=== PATIENT | female | born 1990 | race Caucasian/White ===

== ENCOUNTER 2024-03-17 13:23 | Outpatient (CLI) | payer SELFPAY ==
--- NOTE | ~2024-03-17 | US_ITS ---
EXAMINATION: US pelvic complete w TV DATE: 03/17/2024 14:06 INDICATION: Pelvic and perineal pain. TECHNIQUE: Multiple transabdominal and transvaginal sonographic images of the pelvis were obtained. COMPARISON: None. FINDINGS: TRANSABDOMINAL ULTRASOUND: The uterus measures 7.1 x 3.3 x 4.4 cm. There is no free fluid in the pelvis. TRANSVAGINAL ULTRASOUND: The endometrial complex measures 4 mm in thickness. There is a 10 x 8 mm cyst with low-level echoes i n the endometrial complex, which may be secondary to endometrial ablation. There is fluid in the endo metrial complex. The right ovary measures 1.6 x 1.7 x 21 cm. The left ovary measures 4.1 x 2.3 x 2.9 cm. There is normal vascular flow in the ovaries. IMPRESSION: 1. No specific etiology for the patient's symptoms. Reviewed, dictated and finalized at location A. [employer]IST
== END 2024-03-17 13:24 | disposition home or self-care (01) ==
LOC: MICIMG 13:25
PROVIDERS: PCP Nurse Practitioner Family; Visit Provider Nurse Practitioner Family
DX: R10.2 Pelvic and perineal pain (principal)
CPT/HCPCS: 76830; 76856

== ENCOUNTER 2024-03-24 22:28 | Emergency (ER) | payer OTHER, SELFPAY ==
--- NOTE | ~2024-03-24 | XR_ITS ---
EXAMINATION: XR abdomen/kub 1V DATE: 03/25/2024 02:57 INDICATION: Rectal foreign body. TECHNIQUE: A supine view of the abdomen on 2 radiographs was obtained. COMPARISON: CT abdomen and pelvis 03/25/2024 FINDINGS: There are no dilated loops of bowel. There is a small volume of stool in the colon. Tubal l igation clips are noted. There is a displaced tubal ligation clip in the midline anterior to the rect um. IMPRESSION: 1. Displaced tubal ligation clip in the midline anterior to the rectum. Reviewed, dictated and finalized at location A. TEGIC CONSULTANT
--- NOTE | ~2024-03-24 | CT_ITS ---
EXAMINATION: CT abdomen pelvis wo con DATE: 03/25/2024 04:05 INDICATION: Rectal foreign body. TECHNIQUE: Computed tomography (CT) of the abdomen and pelvis was performed without intravenous contr ast. Automated exposure control and iterative reconstruction technique were employed. The dose-length product was 1280.62 mGy-cm. COMPARISON: None. FINDINGS: The visualized portions of the lung bases demonstrate mild atelectasis. No pleural effusion . The heart size is normal. No pericardial effusion. The liver, gallbladder, spleen, pancreas, adrena l glands, and left kidney are normal. There is a 1 mm stone in right kidney. There are no dilated loo ps of bowel. The appendix is normal. There are no pathologically enlarged lymph nodes. There is no fr ee intraperitoneal fluid. There is a right-sided tubal ligation clip in expected position. There is a displaced left-sided tubal ligation clip anterior to the rectum. There is mild thoracic and lumbar s pondylosis. IMPRESSION: 1. Displaced tubal ligation clip anterior to the rectum. Reviewed, dictated and finalized at location A. MANAGER
--- OUTSIDE RECORDS SUMMARY | 2024-03-24 22:30 | XMS_ITS | Referral Summary ---
Author Organization [facility] Address [address] [place] [address] Care Team Providers Care Stained Glass Joiner Name Role Phone Unavailable Primary Care Provider Unavailabl e Source Comments [facility],non-owned Affiliates and Associated Physician Practices is amultiple site organization consisting of ambulatory clinics and hospital sitesin [place], [place], [place] and [place]. This disclosure is being madepursuant to the Care Everywhere program and may not contain all information available regarding this patient. Last updated 17.[employer] [facility] Allergies No known active allergies Medications * Be aware that medications may not be up to date on this document. Alwaysverify current medications with the patient. Medication Sig Dispensed Refills Start Date End Date Status ferrous sulfate 325 (65 FE) MG tablet Take 325 mg by mouth 3 times daily with meals. 04/11/2010 Active docusate sodium (COLACE) 100 MG capsule Take 100 mg by mouth 2 times daily. 04/11/2010 Active Vit-Fe Fumarate-FA ( VITAMIN) 28-0.8 MG tablet Take 1 Tab by mouth daily. Active acetaminophen-codeine (TYLENOL #3) 300-30 MG tablet Take 1-2 Tabs by mouth every 6 hours as needed for Pain (pain). 30 Tab 0 04/12/2010 Active Active Problems Problem Noted Date Diagnosed Date Supervision of normal first 04/11/2010 Overview (04/11/2010): Blood type: HIV GC/CT: pending H/H/Plt: GCT: GBS: pending Hydronephrosis of right kidney 04/11/2010 Overview (04/11/2010): OSH report in chart, dilated to 0.71cm, no stone seen. History of migraine during 04/11/2010 Overview (04/11/2010): Reports having daily ORTEGA during , treated with tylenol only Other nonspecific abnormal finding 04/11/2010 Overview (04/11/2010): Pt reports abnormal pap prior to with plan to have f/u pap . Denies any biopsy or colpo. Nephrolithiasis 04/11/2010 Overview (04/11/2010): Possible nephrolithiasis of right kidney, positive hydronephrosis, pain in right back and lower abdomen, no stones seen on US at [facility], no stones recovered with urine straining. Immunizations Name Administration Dates Next Due TDAP (7yrs+) 01/01/2020 Social History Tobacco Use Types Packs/Day Years Used Date Smoking Tobacco: Every Day Smokeless Tobacco: Never Alcohol Use Standard Drinks/Week Comments No 0 (1 standard drink = 0.6 oz pur e alcohol) Sex and Gender Information Value Date Recorded Sex Assigned at Not on file Gender Identity Not on file Sexual Orientation Not on file Last Filed Vital Signs Vital Sign Reading Time Taken Comments Blood Pressure 142/99 01/01/2020 5:14 PM SIDE SAWYER Pulse 105 01/01/2020 5:14 PM SIDE SAWYER Temperature 36.4 C (97.6 F) 01/01/2020 5:14 PM SIDE SAWYER Respiratory Rate 16 01/01/2020 5:14 PM SIDE SAWYER Oxygen Saturation 97% 01/01/2020 5:14 PM SIDE SAWYER Inhaled Oxygen Concentration - - Weight 90.7 kg (200 lb) 01/01/2020 5:14 PM SIDE SAWYER Height 160 cm (5' 3 ) 01/01/2020 5:14 PM SIDE SAWYER Body Mass Index 35.43 01/01/2020 5:14 PM SIDE SAWYER Plan of Treatment Not on file Advance Directives * Full Code (Latest Code Status on File) Date Activated Date Inactivated Comments 04/11/2010 1:59 PM 04/13/2010 4:38 AM
--- OUTSIDE RECORDS SUMMARY | 2024-03-24 22:30 | XMS_ITS | Patient Health Summary ---
Author Organization [facility] Address [address] [place] [address] Care Team Providers Care Fire Fighter Name Role Phone Unavailable Primary Care Provider Unavailabl e Note from [facility],non-owned Affiliates and Associated Physician Practices is amultiple site organization consisting of ambulatory clinics and hospital sitesin [place], [place], [place] and [place]. This disclosure is being madepursuant to the Care Everywhere program and may not contain all information available regarding this patient. Last updated 17.[facility] Allergies No known active allergies Medications * Be aware that medications may not be up to date on this document. Alwaysverify current medications with the patient. * ferrous sulfate 325 (65 FE) MG tablet(Started 04/11/2010) Take 325 mg by mouth 3 times daily with meals. * docusate sodium (COLACE) 100 MG capsule(Started 04/11/2010) Take 100 mg by mouth 2 times daily. * Vit-Fe Fumarate-FA ( VITAMIN) 28-0.8 MG tablet Take 1 Tab by mouth daily. * acetaminophen-codeine (TYLENOL #3) 300-30 MG tablet(Started 04/12/2010) Take 1-2 Tabs by mouth every 6 hours as needed for Pain (pain). Active Problems Problem Noted Date Diagnosed Date Supervision of normal first 04/11/2010 Hydronephrosis of right kidney 04/11/2010 History of migraine during 04/11/2010 Other nonspecific abnormal finding 04/11/2010 Nephrolithiasis 04/11/2010 Immunizations * TDAP (7yrs+)(Given 01/01/2020) Social History Tobacco Use Types Packs/Day Years [...] Comments Blood Pressure 142/99 01/01/2020 5:14 PM VALVE FITTER Pulse 105 01/01/2020 5:14 PM VALVE FITTER Temperature 36.4 C (97.6 F) 01/01/2020 5:14 PM VALVE FITTER Respiratory Rate 16 01/01/2020 5:14 PM VALVE FITTER Oxygen Saturation 97% 01/01/2020 5:14 PM VALVE FITTER Inhaled Oxygen Concentration - - Weight 90.7 kg (200 lb) 01/01/2020 5:14 PM VALVE FITTER Height 160 cm (5' 3 ) 01/01/2020 5:14 PM VALVE FITTER Body Mass Index 35.43 01/01/2020 5:14 PM VALVE FITTER Procedures * IMAGING/RADIOLOGY/XRAY RESULTS ORDER(Performed 04/15/2010) * CBC W AUTO DIFFERENTIAL(Performed 04/12/2010) * BLOOD TYPE VERIFICATION(Performed 04/11/2010) * URINALYSIS REFLEX MICROSCOPIC REFLEX CULTURE(Performed 04/11/2010) * TYPE + SCREEN PANEL(Performed 04/11/2010) * LIPASE BLOOD(Performed 04/11/2010) * AMYLASE BLOOD(Performed 04/11/2010) * DRUG SCREEN URINE TRIAGE PANEL(Performed 04/11/2010) * COMPREHENSIVE METABOLIC PANEL(Performed 04/11/2010) * CBC W AUTO DIFFERENTIAL(Performed 04/11/2010) * CULTURE STREP B(Performed 04/11/2010) * CHLAMYDIA + GC AMPLIFIED PROBE(Performed 04/11/2010) Results * IMAGING/RADIOLOGY/XRAY RESULTS ORDER (04/15/2010 8:41 AM VALVE FITTER) Anatomical Region Laterality Modality Other Narrative Procedure Note Document, Scanned - 04/13/2010 11:22 PM VALVE FITTER Scanned Document IMAGING * (ABNORMAL) CBC W AUTO DIFFERENTIAL (04/12/2010 4:40 AM VALVE FITTER) Only the most recent of2 resultswithin the time period is included. WBC 10.4(H) 4.0 - 10.0 K/CUMM [facility] RBC 3.88 3.80 - 5.80 M/CUMM [facility] Hemoglobin 11.5(L) 12.0 - 16.0 gm/dl [facility] Hematocrit 34.0(L) 37.0 - 47.0 % [facility] MCV 87.6 80.0 - 100.0 fl [facility] MCH 29.6 26.0 - 34.0 pg [facility] MCHC 33.8 31.0 - 37.0 gm/dl [facility] Platelet Count 192 150 - 400 K/CUMM [facility] RDW 15.2(H) 11.5 - 14.5 % [facility] Granulocytes % 61.2 50 - 70 % [facility] Lymphocytes % 22.6(DE) 20 - 40 % [facility] Monocytes % 14.4(H) 0 - 12 % [facility] Eosinophils % 1.2(DE) 0 - 5 % [facility] Basophils % 0.2(DE) 0 - 2 % [facility] Granulocytes Absolute 6.34 2.00 - 7.00 x1000/cmm [facility] Lymphocytes Absolute 2.34 0.80 - 4.00 x1000/cmm [facility] Monocytes Absolute 1.49(H) 0.00 - 1.20 x1000/cmm [facility] Eosinophils Absolute 0.12 0.00 - 0.50 x1000/cmm [facility] Basophils Absolute 0.02 0.00 - 0.20 x1000/cmm [facility] BLOOD SPECIMEN / Unknown 04/12/2010 4:40 AM VALVE FITTER 04/12/2010 4:47 AM VALVE FITTER Maicol Uriarte MD LAB - HEMATOLOGY ORD ERABLES Performing Organization Address City/State/[facility] Co de Phone Number [facility] [address] [place] [address] * BLOOD TYPE VERIFICATION (04/11/2010 4:00 PM VALVE FITTER) ABO Rh O Pos SEE BELOW [facility] Comment: Weak D testing is not performed at [facility] BLOOD SPECIMEN / Unknown 04/11/2010 4:00 PM VALVE FITTER 04/11/2010 4:18 PM VALVE FITTER Sheree Edgar MD LAB - BLOOD BANK ORDERABLES Performing Organization Address City/State/[facility] Co de Phone Number [facility] [address] [place] [address] * (ABNORMAL) URINALYSIS ROUTINE W/REFLEX TO CULTURE (04/11/2010 2:44 PM VALVE FITTER) Source Catheter [facility] Color UA Pale Yellow [facility] Character UA Clear [facility] Glucose UA NEGATIVE NEGATIVE mg/dl [facility] Bilirubin UA NEGATIVE NEGATIVE [facility] Ketone UA 15(H) NEGATIVE mg/dl [facility] Specific [place] UA 1.010 1.003 - 1.030 [facility] Blood UA TRACE-INTACT (H) NEGATIVE [facility] pH UA 7.0 5.0 - 9.0 [facility] Protein UA NEGATIVE NEGATIVE-TR MEL mg/dl [facility] Urobilinogen UA 0.2 0.2 - 1.0 Raphael Units/dl [facility] Nitrite UA NEGATIVE NEGATIVE [facility] Leukocyte UA NEGATIVE NEGATIVE [facility] WBC UA 1-2 0 - 2 HPF [facility] RBC UA 1-3 None Seen HPF [facility] Epithelial Cell UA Squamous 4-5 None Seen HPF [facility] Bacteria UA trace None Seen [facility] Urine Culture Culture is not indicated per protocol. [facility] URINE SPECIMEN COLLECTION, CATHETERIZED / Unknown 04/11/2010 2:44 PM VALVE FITTER 04/11/2010 3:10 PM VALVE FITTER Chun Uriarte MD LAB - URINALYSIS ORD ERABLES [facility] [address] [place] [address] * CHLAMYDIA + GC DNA PROBE AMPLIFIED (04/11/2010 2:15 PM VALVE FITTER) [facility] Chlamydia trachomatis Amplified Probe NEGATIVE NEGATIVE [facility] GC Amplified Probe NEGATIVE NEGATIVE [facility] Comment Amplified Probe [facility] Comment: Results based on detection/no detection of ribosomal RNA by amplified method. PART OF UTERINE CERVIX / Unknown 04/11/2010 2:15 PM VALVE FITTER 04/11/2010 2:53 PM VALVE FITTER Maicol Uriarte MD LAB - MICROBIOLOGY O RDERABLES [facility] [address] [place] [id number] * CULTURE STREP B (04/11/2010 2:15 PM VALVE FITTER) Report [facility] Comment: Final - CULTURE No Group B Beta Strep isolated MISCELLANEOUS SAMPLES / Unknown 04/11/2010 2:15 PM VALVE FITTER 04/11/2010 2:54 PM VALVE FITTER Maicol Uriarte MD LAB - MICROBIOLOGY O RDERABLES Performing Organization Address City/[facility] Co de Phone Number [facility] [address] [place] [address] * TYPE + SCREEN PANEL (04/11/2010 2:15 PM VALVE FITTER) Pathologist [facility] ABO Rh O Pos SEE BELOW [facility] Comment: Weak D testing is not performed at [facility] Antibody Screen Neg [facility] Previous History Check Done No historical blood type. Blood type confirmation needed prior to transfusion. [facility] BLOOD SPECIMEN / Unknown 04/11/2010 2:15 PM VALVE FITTER 04/11/2010 3:11 PM VALVE FITTER Maicol Uriarte MD LAB - BLOOD BANK ORD ERABLES Performing Organization Address [facility] de Phone Number [facility] [address] [place] [address] * (ABNORMAL) COMPREHENSIVE METABOLIC PANEL (04/11/2010 2:15 PM VALVE FITTER) Pathologist [facility] Sodium 135(L) 137 - 145 mmol/L [facility] Potassium 3.8 3.6 - 5.0 mmol/L [facility] Chloride 105 98 - 107 mmol/L [facility] BUN 10 7 - 17 mg/dl [facility] Creatinine 0.69 0.52 - 1.04 mg/dl [facility] Glucose 66 65 - 105 mg/dl [facility] Calcium 8.5 8.4 - 10.2 mg/dl [facility] Alkaline Phosphatase 48 38 - 126 U/L [facility] AST 17 8 - 39 U/L [facility] Bilirubin Total 0.1(L) 0.2 - 1.3 mg/dl [facility] Protein Total 6.0(L) 6.3 - 8.2 gm/dl [facility] Albumin 3.0(L) 3.9 - 5.0 gm/dl [facility] CO2 28 22 - 30 mmol/L [facility] ALT 15 9 - 52 U/L [facility] eGFR by MDRD 134 Not applicable <18 yrs old mL/min/1.73m2 [facility] Comment eGFR [facility] Comment: The eGFR does not apply to patients who are younger than 18 or older than 70. BLOOD SPECIMEN / Unknown 04/11/2010 2:15 PM VALVE FITTER 04/11/2010 3:11 PM VALVE FITTER Maicol Uirarte MD LAB - CHEMISTRY ORDE DINH [facility] [address] [place] [id number] * LIPASE BLOOD (04/11/2010 2:15 PM VALVE FITTER) Lipase 41 23 - 300 U/L [facility] BLOOD SPECIMEN / Unknown 04/11/2010 2:15 PM VALVE FITTER 04/11/2010 3:11 PM VALVE FITTER Maicol Uriarte MD LAB - CHEMISTRY ORDE DINH Performing Organization Address City/[facility] Co de Phone Number [facility] [address] [place] [address] * DRUG SCREEN TRIAGE PANEL (04/11/2010 2:15 PM VALVE FITTER) Phencyclidine Screen Urine Negative Negative ng/ml [facility] Benzodiazepines Screen Urine Negative Negative ng/ml [facility] Cocaine Screen Urine Negative Negative ng/ml [facility] Amphetamines Screen Urine Negative Negative ng/ml [facility] Cannabinoids Screen Urine Negative Negative ng/ml [facility] Opiate Screen Urine Negative Negative ng/ml [facility] Barbiturates Screen Urine Negative Negative ng/ml [facility] URINE / Unknown 04/11/2010 2 :15 PM VALVE FITTER 04/11/2010 3:11 PM VALVE FITTER Maicol Uriarte MD LAB - URINE CHEMISTR Y ORDERABLES Performing Organization Address City/[facility]/ZIP Co de Phone Number [facility] [address] [place] [address] * AMYLASE BLOOD (04/11/2010 2:15 PM VALVE FITTER) Amylase 52 30 - 110 U/L [facility] BLOOD SPECIMEN / Unknown 04/11/2010 2:15 PM VALVE FITTER 04/11/2010 3:11 PM VALVE FITTER Maicol Uriarte MD LAB - CHEMISTRY ABAD TAO [facility] [address] [place] [address]
--- OUTSIDE RECORDS SUMMARY | 2024-03-24 22:30 | XMS_ITS | Clinical Summary ---
Author Organization [facility] Address [address] [place] [address] Phone Care Team Providers Care Research Staff Member Name Role Phone Provider, None Primary Care Provider Unavailabl e Allergies No known active allergies Medications busPIRone HCl (BUSPAR) 30 MG Tablet Take by mouth 2 times daily. Active lithium 300 MG Capsule Take 300 mg by mouth 2 times daily (with meals). Active DULoxetine (CYMBALTA) [address] Particles Take 60 mg by mouth 2 times daily. Active naproxen (NAPROSYN) 500 MG Tablet Take 1 Tab by mouth 2 times daily as needed for Mild or more severe pain. 20 Tab 12/15/2017 Active ondansetron (ZOFRAN-ODT) 4 MG TABLET DISPERSIBLEIndi cations:Nausea and Vomiting Take 1 Tablet by mouth every 8 hours as needed for Nausea - 1st line. Indications: Nausea and Vomiting 10 Tablet 02/19/2024 Active Encounters Date Type Department Care Team Description 02/25/2024 Transcribe Orders [facility] Central Scheduling [address] [place] [phone] Aide Dickson APRN, CNP Pelvic and perineal pain (Primary Dx) 02/19/2024 11:53 AM RENTAL CLERK - 02/19/2024 2:29 PM RENTAL CLERK [facility] [address] [place] [id number] Blanca Corbin APRN, KETTLE ROOM HELPER Suprapubic abdominal pain Discharge Disposition: Discharged to home or Selfcare 02/19/2024 Travel from Last 3 Months Social History Tobacco Use Types Packs/Day Years Used Date Smoking Tobacco: Never Smokeless Tobacco: Never Alcohol Use Standard Drinks/Week Comments Yes 0 (1 standard drink = 0.6 oz pur e alcohol) socially Comments No Sex and Gender Information Value Date Recorded Sex Assigned at Not on file Legal Sex Female 7:38 PM CDT Gender Identity Not on file Sexual Orientation Not on file Last Filed Vital Signs Vital Sign Reading Time Taken Comments Blood Pressure 133/68 02/19/2024 2:00 PM RENTAL CLERK Pulse 91 02/19/2024 2:15 PM RENTAL CLERK Temperature 36.9 C (98.5 F) 02/19/2024 12:00 PM RENTAL CLERK Respiratory Rate 16 02/19/2024 12:00 PM RENTAL CLERK Oxygen Saturation 98% 02/19/2024 2:15 PM RENTAL CLERK Inhaled Oxygen Concentration - - Weight 90.7 kg (200 lb) 02/19/2024 12:00 PM RENTAL CLERK Height 160 cm (5' 3 ) 02/19/2024 12:00 PM RENTAL CLERK Body Mass Index 35.43 02/19/2024 12:00 PM RENTAL CLERK Plan of Treatment Health Maintenance Due Date Last Done Comments Hepatitis C Virus (HCV) Screening 1991 Pap Smear 12/27/2012 Cervical Cancer Screening (CCS) 12/27/2021 HPV/Cotest 12/27/2021 Influenza Immunization (#1) 2023 SARS-COV-2 Immunization (2023- season) 2023 Respiratory Syncytial Virus (RSV) Immunization (Adult) (1 - 1-dose 75+ series) 12/27/2066 Hepatitis B Immunization Completed 997, 08/06/1993, 07/05/1993 DTaP/Tdap/Td Immunization Discontinued 2019, 06/22/1996, 07/05/1993, Additional history exists TdaP Immunization Completed 01/01/2020 Meningococcal Immunization (ACWY) Aged Out No longer eligible based on patient's age to complete this topic Pneumococcal Immunization Combined Aged Out No longer eligible based on patient's age to complete this topic Rotavirus Immunization Aged Out No lo nger eligible based on patient's age to complete this topic Procedures Procedure Name Priority Date/Time Associated Diagnosis Comments CT RENAL STONE STUDY (ABDOMEN AND PELVIS W/O CONTRAST) Stat with Interpretation 02/19/2024 1:13 PM RENTAL CLERK POCT URINE HCG () STAT 02/19/2024 12:34 PM RENTAL CLERK URINALYSIS REFLEX IF INDICATED BY ABNORMAL RESULTS STAT 02/19/2024 12:30 PM RENTAL CLERK GOLD TOP TUBE STAT 02/19/2024 12:10 PM RENTAL CLERK BLUE TOP TUBE STAT 02/19/2024 12:10 PM RENTAL CLERK CBC WITH AUTO DIFFERENTIAL STAT 02/19/2024 12:10 PM RENTAL CLERK EXTRA TUBES STAT 02/19/2024 12:10 PM RENTAL CLERK LIPASE STAT 02/19/2024 12:10 PM RENTAL CLERK CMP (COMPREHENSIVE METABOLIC PANEL) STAT 02/19/2024 12:10 PM RENTAL CLERK COMPLETE BLOOD COUNT (CBC) WITH DIFF STAT 02/19/2024 12:10 PM RENTAL CLERK from Last 3 Months Results * CT RENAL STONE STUDY (ABDOMEN AND PELVIS W/O CONTRAST) (02/19/2024 1:13 PM RENTAL CLERK) Anatomical Region Laterality Modality Abdomen N/A Computed Tomogra phy 02/19/2024 2:01 PM RENTAL CLERK Impressions 02/19/2024 2:04 PM RENTAL CLERK IMPRESSION: No evidence of an acute abnormality of the abdomen and pelvis. No evidence of urolithiasis or obstructive uropathy. Submucosal fat deposition in the colon which is nonspecific but can be seen with chronic inflammatory bowel disease. Narrative 02/19/2024 2:04 PM RENTAL CLERK EXAM DESCRIPTION: CT RENAL STONE STUDY (ABDOMEN AND PELVIS W/O CONTRAST) REASON FOR STUDY: lower abdominal pain, radiates into bilateral flank with intermittent, N/V, and ORTEGA for 3 days. Pt has a history of an ablation and tubal ligation over ten years ago. TECHNIQUE: CT scan of the abdomen and pelvis performed without intravenous and without oral contrast using helical scanning technique. Reconstructed coronal and sagittal MPR images reviewed. All images stored on PACS. Automated exposure control was used as a dose optimization technique for this examination. COMPARISON: None. FINDINGS: The sensitivity for detection of visceral lesions is diminished without the use of intravenous contrast. LOWER CHEST: Lung bases are predominantly clear. There is no pleural effusion. LIVER: The liver size and contour normal. No focal hepatic lesion. GALLBLADDER: The gallbladder is contracted. No calcified gallstones. BILE DUCTS: No biliary ductal dilation. SPLEEN: Spleen size normal. No focal splenic lesion. PANCREAS: No pancreatic mass or inflammatory change. ADRENALS: Normal KIDNEYS/URINARY TRACT: No right renal calculus. No left renal calculus. No ureteral calculus. No hydronephrosis or hydroureter. The urinary bladder is unremarkable. GI: No bowel obstruction. There is submucosal fat deposition in the colon. The terminal ileum is normal. The appendix is normal. The stomach and duodenum is normal. PERITONEUM: No ascites or free air. No mesenteric mass or lymphadenopathy. RETROPERITONEUM: No retroperitoneal mass or lymphadenopathy. REPRODUCTIVE: The uterus is noted. There are clips in the pelvis likely from tubal ligation. VASCULATURE: Abdominal aorta nonaneurysmal. MUSCULOSKELETAL: Bone windows demonstrate no acute or aggressive osseous abnormality. OTHER: No other abnormality. THIS IS AN ELECTRONICALLY VERIFIED FINAL REPORT 02/19/2024 2:01 PM - Electronically signed by Wagner Jiang M.D. CH: RAUL Report ID: [id number] Reading Location: [place] [address] Procedure Note Wagner Jiang Jr., MD - 02/19/2024 EXAM DESCRIPTION: CT RENAL STONE STUDY (ABDOMEN AND PELVIS W/O CONTRAST) REASON FOR STUDY: lower abdominal pain, radiates into bilateral flank with intermittent, N/V, and ORTEGA for 3 days. Pt has a history of an ablation and tubal ligation over ten years ago. TECHNIQUE: CT scan of the abdomen and pelvis performed without intravenous and without oral contrast using helical scanning technique. Reconstructed coronal and sagittal MPR images reviewed. All images stored on PACS. Automated exposure control was used as a dose optimization technique for this examination. COMPARISON: None. FINDINGS: The sensitivity for detection of visceral lesions is diminished without the use of intravenous contrast. LOWER CHEST: Lung bases are predominantly clear. There is no pleural effusion. LIVER: The liver size and contour normal. No focal hepatic lesion. GALLBLADDER: The gallbladder is contracted. No calcified gallstones. BILE DUCTS: No biliary ductal dilation. SPLEEN: Spleen size normal. No focal splenic lesion. PANCREAS: No pancreatic mass or inflammatory change. ADRENALS: Normal KIDNEYS/URINARY TRACT: No right renal calculus. No left renal calculus. No ureteral calculus. No hydronephrosis or hydroureter. The urinary bladder is unremarkable. GI: No bowel obstruction. There is submucosal fat deposition in the colon. The terminal ileum is normal. The appendix is normal. The stomach and duodenum is normal. PERITONEUM: No ascites or free air. No mesenteric mass or lymphadenopathy. RETROPERITONEUM: No retroperitoneal mass or lymphadenopathy. REPRODUCTIVE: The uterus is noted. There are clips in the pelvis likely from tubal ligation. VASCULATURE: Abdominal aorta nonaneurysmal. MUSCULOSKELETAL: Bone windows demonstrate no acute or aggressive osseous abnormality. OTHER: No other abnormality. THIS IS AN ELECTRONICALLY VERIFIED FINAL REPORT 02/19/2024 2:01 PM - Electronically signed by Wagner Jiang M.D. CH: RAUL Report ID: [id number] Reading Location: [id number] IMPRESSION: No evidence of an acute abnormality of the abdomen and pelvis. No evidence of urolithiasis or obstructive uropathy. Submucosal fat deposition in the colon which is nonspecific but can be seen with chronic inflammatory bowel disease. Blanca Corbin APRN, CNP IMG CT ORDERABLES Fin al Result * POCT Urine HCG () (02/19/2024 12:34 PM RENTAL CLERK) Pathologist [facility] POC URINE Negative POC URINE CONTROL Contracting Analyst Pass Urine 02/19/2024 12:3 4 PM RENTAL CLERK Blanca Corbin APRN, CNP POINT OF CARE TESTING (MANUAL) Final Result * (ABNORMAL) URINALYSIS REFLEX IF INDICATED BY ABNORMAL RESULTS (02/19/2024 12:30 PM RENTAL CLERK) SPECIFIC GRAVITY 1.020 1.003 - 1.030 02/19/2024 1:13 PM [facility] URINE PH 6.0 5.0 - 9.0 02/19/2024 1:13 PM [facility] WBC ESTERASE 25 /ul(A) Negative 02/19/2024 1:13 PM [facility] NITRITE Negative Negative 02/19/2024 1:13 PM [facility] PROTEIN, RANDOM URINE 30 mg/dL(A) Negative 02/19/2024 1:13 PM [facility] URINE GLUCOSE, QUAL Negative Negative 02/19/2024 1:13 PM [facility] URINE KETONES Negative Negative 02/19/2024 1:13 PM [facility] UROBILINOGEN Normal Normal mg/dL 02/19/2024 1:13 PM [facility] URINE BLOOD Negative Negative omaira/ul 02/19/2024 1:13 PM [facility] URINALYSIS COLOR Yellow 02/18/19 25 1:13 PM [facility] URINALYSIS CLARITY Slightly Cloudy 02/19/2024 1:13 PM [facility] WBC (Urine) 0-5 Negative, 0-5 /hpf 02/19/2024 1:13 PM [facility] URINE RBC'S 0-2 Negative, 0-2 /hpf 02/19/2024 1:13 PM [facility] EPITHELIAL CELLS Large amount squamous /lpf 02/19/2024 1:13 PM [facility] BACTERIA, URINE Few(A) Negative /hpf 02/19/2024 1:13 PM [facility] Urine URINE SPECIMEN COLLECTION, CLEAN CATCH / Unknown Non-Phlebotomy Collection / Unknown 02/19/2024 12:30 PM RENTAL CLERK 02/19/2024 12:41 PM RENTAL CLERK Narrative [facility] - 02/19/2024 1:13 PM RENTAL CLERK Amorphous sediment present us Blanca Corbin FOLDER TIER, KETTLE ROOM HELPER URINE ORDERABLES Liz l Result Performing Organization Address City/[facility]/ZIP Co de Phone Number [facility] [address] [place] [address] * Gold Top Tube (02/19/2024 12:10 PM RENTAL CLERK) Blood No Phlebotomy Charged / Unknown 02/19/2024 12:10 PM RENTAL CLERK 02/19/2024 12:19 PM RENTAL CLERK us Blanca Corbin FOLDER TIER, KETTLE ROOM HELPER CHEMISTRY ORDERABLES Final Result Performing Organization Address [facility]/ZIP Co de Phone Number [facility] [address] [place] [address] * Blue Top Tube (02/19/2024 12:10 PM RENTAL CLERK) Blood No Phlebotomy Charged / Unknown 02/19/2024 12:10 PM RENTAL CLERK 02/19/2024 12:19 PM RENTAL CLERK us Blanca Corbin FOLDER TIER, KETTLE ROOM HELPER HEMATOLOGY ORDERABLES Final Result Performing Organization Address [facility] Co de Phone Number [facility] [address] [place] [address] * (ABNORMAL) CBC with Auto Differential (02/19/2024 12:10 PM RENTAL CLERK) WBC 11.00 4.00 - 12.00 10(3)/mcL 02/19/2024 12:22 PM RENTAL CLERK [facility] RBC 5.07 3.80 - 5.30 10(6)/mcL 02/19/2024 12:22 PM RENTAL CLERK [facility] HEMOGLOBIN (HGB) 15.8 12.0 - 15.8 g/dL 02/19/2024 12:22 PM RENTAL CLERK [facility] HEMATOCRIT (HCT) 46.8 36.0 - 47.0 % 02/19/2024 12:22 PM RENTAL CLERK [facility] MCV 92.3 82.0 - 96.0 fL 02/19/2024 12:22 PM [facility] MCH 31.2 26.0 - 34.0 pg 02/19/2024 12:22 PM [facility] MCHC 33.8 31.0 - 36.0 g/dL 02/19/2024 12:22 PM [facility] PLATELET COUNT 354 140 - 440 10(3)/[facility] 02/19/2024 12:22 PM [facility] RDW 12.2 11.8 - 15.5 % 02/19/2024 12:22 PM [facility] MPV 9.5(L) 9.7 - 12.4 fL 02/19/2024 12:22 PM [facility] NEUTROPHILS 55.9 47.0 - 73.0 % 02/19/2024 12:22 PM [facility] LYMPHOCYTES 31.2 18.0 - 42.0 % 02/19/2024 12:22 PM [facility] MONOCYTES 10.3 4.0 - 12.0 % 02/19/2024 12:22 PM [facility] EOSINOPHILS 2.0 0.0 - 5.0 % 02/19/2024 12:22 PM [facility] BASOPHILS 0.6 0.0 - 1.0 % 02/19/2024 12:22 PM [facility] ABSOLUTE NEUTROPHILS 6.15 1.60 - 7.70 10(3)/mcL 02/19/2024 12:22 PM [facility] ABSOLUTE LYMPHOCYTES 3.43(H) 1.30 - 3.20 10(3)/mcL 02/19/2024 12:22 PM [facility] ABSOLUTE MONOCYTES 1.13(H) 0.20 - 1.00 10(3)/mcL 02/19/2024 12:22 PM [facility] ABSOLUTE EOSINOPHIL 0.22 0.00 - 0.40 10(3)/mcL 02/19/2024 12:22 PM [facility] ABSOLUTE BASOPHILS 0.07 0.00 - 0.10 10(3)/mcL 02/19/2024 12:22 PM RENTAL CLERK [facility] NRBC PER 100 WBC 0 02/18/19 12:22 PM RENTAL CLERK [facility] Blood Venipuncture / Unknown 02/19/2024 12:10 PM RENTAL CLERK 02/19/2024 12:18 PM RENTAL CLERK us Blanca Corbin APRN, KETTLE ROOM HELPER HEMATOLOGY ORDERABLES Final Result Performing Organization Address City/[facility]/ZIP Co de Phone Number [facility] [address] [place] [address] * Lipase [id number] (02/19/2024 12:10 PM RENTAL CLERK) LIPASE 16 8 - 78 U/L 02/19/2024 12:40 PM RENTAL CLERK [facility] Blood Venipuncture / Unknown 02/19/2024 12:10 PM RENTAL CLERK 02/19/2024 12:18 PM RENTAL CLERK us Blanca Corbin APRN, KETTLE ROOM HELPER CHEMISTRY ORDERABLES Final Result Performing Organization Address City/[facility]/ZIP Co de Phone Number [facility] [address] [place] [address] * (ABNORMAL) Comprehensive Metabolic Panel (Cmp) [id number] (02/19/2024 12:10 PM RENTAL CLERK) SODIUM 139 136 - 145 mmol/L 02/19/2024 12:40 PM RENTAL CLERK [facility] POTASSIUM 4.0 3.5 - 5.1 mmol/L 02/19/2024 12:40 PM RENTAL CLERK [facility] CHLORIDE 104 98 - 107 mmol/L 02/19/2024 12:40 PM RENTAL CLERK [facility] CO2, VENOUS 27 22 - 30 mmol/L 02/19/2024 12:40 PM RENTAL CLERK [facility] ANION GAP 12.0 <18.0 mmol/L 02/19/2024 12:40 PM [facility] GLUCOSE 103(H) 70 - 99 mg/dL 02/19/2024 12:40 PM [facility] BUN 14 5 - 18 mg/dL 02/19/2024 12:40 PM [facility] CREATININE, BLOOD 0.85 0.60 - 1.00 mg/dL 02/19/2024 12:40 PM [facility] BUN/CREATININE RATIO 16 12 - 20 ratio 02/19/2024 12:40 PM [facility] TOTAL PROTEIN 7.8 6.3 - 8.2 g/dL 02/19/2024 12:40 PM [facility] ALBUMIN 4.3 3.5 - 5.0 g/dL 02/19/2024 12:40 PM [facility] A/G RATIO 1.2 1.0 - 2.2 02/19/2024 12:40 PM [facility] CALCIUM 9.8 8.7 - 10.5 mg/dL 02/19/2024 12:40 PM [facility] T BILI 0.3 0.2 - 1.2 mg/dL 02/19/2024 12:40 PM [facility] SGOT (AST) 20 5 - 34 U/L 02/19/2024 12:40 PM [facility] SGPT (ALT) 28 0 - 55 U/L 02/19/2024 12:40 PM [facility] ALKALINE PHOSPHATASE 62 40 - 150 U/L 02/19/2024 12:40 PM [facility] GFR, ESTIMATED >60 >=60 02/19/2024 12:40 PM [facility] Comment: Creatinine Clearance is the preferred criteria for selecting drug dose adjustments in renally impaired patients. The GFR is provided as additional pertinent clinical information. GFR is reported in mL/min/1.73 sq m. Calculation based on the Chronic Kidney Disease Epidemiology Collaboration (CKD- EPI) equation refit without adjustment for race. GFR, EST. >60 >=60 025 12:40 PM RENTAL CLERK [facility] GFR, EST. NONAFRICAN >60 >=60 02/19/2024 12:40 PM RENTAL CLERK [facility] Blood Venipuncture / Unknown 02/19/2024 12:10 PM RENTAL CLERK 02/19/2024 12:18 PM RENTAL CLERK Blanca Corbin FOLDER TIER, KETTLE ROOM HELPER CHEMISTRY ORDERABLES Final Result [facility] [address] [place] [address] from Last 3 Months Insurance [place] [employer] Member Subscriber Plan / Payer (Ef fective 2020-Present) Name:Miladys De León Relation to Subscriber:Self Name:Miladys De León Payer ID:[id number] Group ID:NONE Type:Not on file Address: [address] [place] [phone] Care Teams Research Staff Member Relationship Specialty Start Date End Date Provider, None [place] PCP - General 02/19/24
--- OUTSIDE RECORDS SUMMARY | 2024-03-24 22:30 | XMS_ITS | Clinical Summary ---
Author Organization [facility] Address [address] [place] [address] Care Team Providers Care Guest Services Ambassador Name Role Phone Unavailable Primary Care Provider Unavailabl e Source Comments [facility],non-owned Affiliates and Associated Physician Practices is amultiple site organization consisting of ambulatory clinics and hospital sitesin [place], [place], [place] and [place]. This disclosure is being madepursuant to the Care Everywhere program and may not contain all information available regarding this patient. Last updated 17.[facility] Allergies No known active allergies Medications * [...] abdomen, no stones seen on US at [facility], no stones recovered with urine straining. Immunizations Name Administration Dates Next Due TDAP (7yrs+) 01/01/2020 Family History Medical History Relation Name Comments Heart Failure Maternal Grandfather Cancer Maternal Grandmother Stroke Paternal Grandfather Diabetes Paternal Grandmother Relation Name Status Comments Father Alive Maternal Grandfather Maternal Grandmother Mother Alive Paternal Grandfather Paternal Grandmother Alive Social History Tobacco Use Types Packs/Day Years [...] Comments Blood Pressure 142/99 01/01/2020 5:14 PM AGRICULTURE DEPARTMENT CHAIR Pulse 105 01/01/2020 5:14 PM AGRICULTURE DEPARTMENT CHAIR Temperature 36.4 C (97.6 F) 01/01/2020 5:14 PM AGRICULTURE DEPARTMENT CHAIR Respiratory Rate 16 01/01/2020 5:14 PM AGRICULTURE DEPARTMENT CHAIR Oxygen Saturation 97% 01/01/2020 5:14 PM AGRICULTURE DEPARTMENT CHAIR Inhaled Oxygen Concentration - - Weight 90.7 kg (200 lb) 01/01/2020 5:14 PM AGRICULTURE DEPARTMENT CHAIR Height 160 cm (5' 3 ) 01/01/2020 5:14 PM AGRICULTURE DEPARTMENT CHAIR Body Mass Index 35.43 01/01/2020 5:14 PM AGRICULTURE DEPARTMENT CHAIR Plan of Treatment Health Maintenance Due Date Last Done Comments PAP SMEAR 1991 HIV SCREENING 12/27/2006 HEPATITIS C SCREENING 12/23/2009 HEPATITIS B VACCINE (1 of 3 - 19+ 3-dose series) 12/27/2010 PNEUMOCOCCAL VACCINE (1 of 2 - PCV) 12/27/2010 COVID-19 VACCINE (1 - 2023-2 5 season) 2023 INFLUENZA VACCINE (#1) 2023 DEPRESSION SCREENING 02/10/2024 DTAP/TDAP/TD VACCINES (2 - T d or Tdap) 12/31/2029 01/01/2020 ZOSTER VACCINE (1 of 2) 12/27/2041 HIB VACCINE Aged Out No longer eligi ble based on patient's age to complete this topic HPV VACCINE Aged Out No longer eligi ble based on patient's age to complete this topic MENINGOCOCCAL (Group B) VACCINE Aged Out No longer eligible based on patient's age to complete this topic MENINGOCOCCAL VACCINE Aged Out No vicente edmund eligible based on patient's age to complete this topic Advance Directives * Full Code (Latest Code Status on File) Date Activated Date Inactivated Comments 04/11/2010 1:59 PM 04/13/2010 4:38 AM
[2024-03-24 22:34] VITALS: BP 141/85; PULSE 73; RESP 17; TEMP 36.4; O2SAT 96
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
--- OUTSIDE RECORDS SUMMARY | 2024-03-25 02:31 | XMS_ITS | Referral Summary ---
Author Organization [facility] Address [address] [place] [address] Care Team Providers Care Back Tender Name Role Phone Unavailable Primary Care Provider Unavailabl e Source Comments [facility],non-owned Affiliates and Associated Physician Practices is amultiple site organization consisting of ambulatory clinics and hospital sitesin [place], [place], [place] and [place]. This disclosure is being madepursuant to the Care Everywhere program and may not contain all information available regarding this patient. Last updated [email or web address] Allergies No known active allergies Medications * [...] abdomen, no stones seen on US at [facility], no stones recovered with urine straining. [...] Comments Blood Pressure 142/99 01/01/2020 5:14 PM ASSISTANT CORPORATE CONTROLLER Pulse 105 01/01/2020 5:14 PM ASSISTANT CORPORATE CONTROLLER Temperature 36.4 C (97.6 F) 01/01/2020 5:14 PM ASSISTANT CORPORATE CONTROLLER Respiratory Rate 16 01/01/2020 5:14 PM ASSISTANT CORPORATE CONTROLLER Oxygen Saturation 97% 01/01/2020 5:14 PM ASSISTANT CORPORATE CONTROLLER Inhaled Oxygen Concentration - - Weight 90.7 kg (200 lb) 01/01/2020 5:14 PM ASSISTANT CORPORATE CONTROLLER Height 160 cm (5' 3 ) 01/01/2020 5:14 PM ASSISTANT CORPORATE CONTROLLER Body Mass Index 35.43 01/01/2020 5:14 PM ASSISTANT CORPORATE CONTROLLER Plan of Treatment Not on file Advance Directives * Full Code (Latest Code Status on File) Date Activated Date Inactivated Comments 04/11/2010 1:59 PM 04/13/2010 4:38 AM
--- OUTSIDE RECORDS SUMMARY | 2024-03-25 02:31 | XMS_ITS | Patient Health Summary ---
Author Organization [facility] Address [address] [place] [address] Care Team Providers Care Window Shade Installer Name Role Phone Unavailable Primary Care Provider Unavailabl e Note from [facility],non-owned Affiliates and Associated Physician Practices is amultiple site organization consisting of ambulatory clinics and hospital sitesin [place], [place], [place] and [place]. This disclosure is being madepursuant to the Care Everywhere program and may not contain all information available regarding this patient. Last updated 17.[facility] Allergies No known active allergies Medications * [...] Comments Blood Pressure 142/99 01/01/2020 5:14 PM COMMAND AND CONTROL OFFICER Pulse 105 01/01/2020 5:14 PM COMMAND AND CONTROL OFFICER Temperature 36.4 C (97.6 F) 01/01/2020 5:14 PM COMMAND AND CONTROL OFFICER Respiratory Rate 16 01/01/2020 5:14 PM COMMAND AND CONTROL OFFICER Oxygen Saturation 97% 01/01/2020 5:14 PM COMMAND AND CONTROL OFFICER Inhaled Oxygen Concentration - - Weight 90.7 kg (200 lb) 01/01/2020 5:14 PM COMMAND AND CONTROL OFFICER Height 160 cm (5' 3 ) 01/01/2020 5:14 PM COMMAND AND CONTROL OFFICER Body Mass Index 35.43 01/01/2020 5:14 PM COMMAND AND CONTROL OFFICER Procedures * IMAGING/RADIOLOGY/XRAY RESULTS ORDER(Performed 04/15/2010) * [...] * IMAGING/RADIOLOGY/XRAY RESULTS ORDER (04/15/2010 8:41 AM COMMAND AND CONTROL OFFICER) Anatomical Region Laterality Modality Other Narrative Procedure Note Document, Scanned - 04/13/2010 11:22 PM COMMAND AND CONTROL OFFICER Scanned Document IMAGING * (ABNORMAL) CBC W AUTO DIFFERENTIAL (04/12/2010 4:40 AM COMMAND AND CONTROL OFFICER) Only the most recent of2 resultswithin the time period is included. WBC 10.4(H) 4.0 - 10.0 K/CUMM [facility] RBC 3.88 3.80 - 5.80 M/CUMM [facility] Hemoglobin 11.5(L) 12.0 - 16.0 gm/dl [facility] Hematocrit 34.0(L) 37.0 - 47.0 % [facility] MCV 87.6 80.0 - 100.0 fl [facility] MCH 29.6 26.0 - 34.0 pg [facility] MCHC 33.8 31.0 - 37.0 gm/dl [facility] Platelet Count 192 150 - 400 K/CUM[facility] RDW 15.2(H) 11.5 - 14.5 % [facility] Granulocytes % 61.2 50 - 70 % [facility] Lymphocytes % 22.6(DE) 20 - 40 % [facility] Monocytes % 14.4(H) 0 - 12 % [facility] Eosinophils % 1.2(DE) 0 - 5 % [facility] Basophils % 0.2(DE) 0 - 2 % [facility] Granulocytes Absolute 6.34 2.00 - 7.00 x1000/cmm [facility] Lymphocytes Absolute 2.34 0.80 - 4.00 x1000/cmm [facility] Monocytes Absolute 1.49(H) 0.00 - 1.20 x1000/cmm [facility] Eosinophils Absolute 0.12 0.00 - 0.50 x1000/cmm [facility] Basophils Absolute 0.02 0.00 - 0.20 x1000/cmm [facility] BLOOD SPECIMEN / Unknown 04/12/2010 4:40 AM COMMAND AND CONTROL OFFICER 04/12/2010 4:47 AM COMMAND AND CONTROL OFFICER Maicol Uriarte MD LAB - HEMATOLOGY ORD ERABLES Performing Organization Address City/State/[facility] Co de Phone Number [facility] [address] [place] [address] * BLOOD TYPE VERIFICATION (04/11/2010 4:00 PM COMMAND AND CONTROL OFFICER) ABO Rh O Pos SEE BELOW [facility] Comment: Weak D testing is not performed at [facility] BLOOD SPECIMEN / Unknown 04/11/2010 4:00 PM COMMAND AND CONTROL OFFICER 04/11/2010 4:18 PM COMMAND AND CONTROL OFFICER Sheree Edgar MD LAB - BLOOD BANK ORDERABLES Performing Organization Address City/State/[facility] Co de Phone Number [facility] [address] [place] [address] * (ABNORMAL) URINALYSIS ROUTINE W/REFLEX TO CULTURE (04/11/2010 2:44 PM COMMAND AND CONTROL OFFICER) Source Catheter [facility] Color UA Pale Yellow [facility] Character UA Clear [facility] Glucose UA NEGATIVE NEGATIVE mg/dl [facility] Bilirubin UA NEGATIVE NEGATIVE [facility] Ketone UA 15(H) NEGATIVE mg/dl [facility] Specific Douglas UA 1.010 1.003 - 1.030 [facility] Blood UA TRACE-INTACT (H) NEGATIVE [facility] pH UA 7.0 5.0 - 9.0 [facility] Protein UA NEGATIVE NEGATIVE-TR MEL mg/dl [facility] Urobilinogen UA 0.2 0.2 - 1.0 Raphael Units/dl [facility] Nitrite UA NEGATIVE NEGATIVE [facility] Leukocyte UA NEGATIVE NEGATIVE [facility] WBC UA 1-2 0 - 2 HPF [facility] RBC UA 1-3 None Seen HPF [facility] Epithelial Cell UA Squamous 4-5 None Seen HPF [facility] Bacteria UA trace None Seen [facility] Urine Culture Culture is not indicated per protocol. [facility] URINE SPECIMEN COLLECTION, CATHETERIZED / Unknown 04/11/2010 2:44 PM COMMAND AND CONTROL OFFICER 04/11/2010 3:10 PM COMMAND AND CONTROL OFFICER Chun Uriarte MD LAB - URINALYSIS ORD ERABLES [facility] [address] [place] [address] * CHLAMYDIA + GC DNA PROBE AMPLIFIED (04/11/2010 2:15 PM COMMAND AND CONTROL OFFICER) [facility] Chlamydia trachomatis Amplified Probe NEGATIVE NEGATIVE [facility] GC Amplified Probe NEGATIVE NEGATIVE [facility] Comment Amplified Probe [facility] Comment: Results based on detection/no detection of ribosomal RNA by amplified method. PART OF UTERINE CERVIX / Unknown 04/11/2010 2:15 PM COMMAND AND CONTROL OFFICER 04/11/2010 2:53 PM COMMAND AND CONTROL OFFICER Maicol Uriarte MD LAB - MICROBIOLOGY O RDERABLES [facility] [address] [place] [address] * CULTURE STREP B (04/11/2010 2:15 PM COMMAND AND CONTROL OFFICER) Report [facility] Comment: Final - CULTURE No Group B Beta Strep isolated MISCELLANEOUS SAMPLES / Unknown 04/11/2010 2:15 PM COMMAND AND CONTROL OFFICER 04/11/2010 2:54 PM COMMAND AND CONTROL OFFICER Maicol Uriarte MD LAB - MICROBIOLOGY O RDERABLES Performing Organization Address City/[facility] Co de Phone Number [facility] [address] [place] [address] * TYPE + SCREEN PANEL (04/11/2010 2:15 PM COMMAND AND CONTROL OFFICER) Pathologist [facility] ABO Rh O Pos SEE BELOW [facility] Comment: Weak D testing is not performed at [facility] Antibody Screen Neg [facility] Previous History Check Done No historical blood type. Blood type confirmation needed prior to transfusion. [facility] BLOOD SPECIMEN / Unknown 04/11/2010 2:15 PM COMMAND AND CONTROL OFFICER 04/11/2010 3:11 PM COMMAND AND CONTROL OFFICER Maicol Uriarte MD LAB - BLOOD BANK ORD ERABLES Performing Organization Address [facility] de Phone Number [facility] [address] [place] [address] * (ABNORMAL) COMPREHENSIVE METABOLIC PANEL (04/11/2010 2:15 PM COMMAND AND CONTROL OFFICER) Pathologist [facility] Sodium 135(L) 137 - 145 mmol/L [facility] Potassium 3.8 3.6 - 5.0 mmol/L [facility] Chloride 105 98 - 107 mmol/L [facility] BUN 10 7 - 17 mg/dl [facility] Creatinine 0.69 0.52 - 1.04 mg/dl [facility] Glucose 66 65 - 105 mg/dl [facility] Calcium 8.5 8.4 - 10.2 mg/dl [facility] Alkaline Phosphatase 48 38 - 126 U/L [facility] AST 17 8 - 39 U/L [facility] Bilirubin Total 0.1(L) 0.2 - 1.3 mg/dl [facility] Protein Total 6.0(L) 6.3 - 8.2 gm/dl [facility] Albumin 3.0(L) 3.9 - 5.0 gm/dl [facility] CO2 28 22 - 30 mmol/L [facility] ALT 15 9 - 52 U/L [facility] eGFR by MDRD 134 Not applicable <18 yrs old mL/min/1.73m2 [facility] Comment eGFR [facility] Comment: The eGFR does not apply to patients who are younger than 18 or older than 70. BLOOD SPECIMEN / Unknown 04/11/2010 2:15 PM COMMAND AND CONTROL OFFICER 04/11/2010 3:11 PM COMMAND AND CONTROL OFFICER Maicol Uriarte MD LAB - CHEMISTRY ORDE DINH [facility] [address] [place] [address] * LIPASE BLOOD (04/11/2010 2:15 PM COMMAND AND CONTROL OFFICER) Lipase 41 23 - 300 U/L [facility] BLOOD SPECIMEN / Unknown 04/11/2010 2:15 PM COMMAND AND CONTROL OFFICER 04/11/2010 3:11 PM COMMAND AND CONTROL OFFICER Maicol Uriarte MD LAB - CHEMISTRY ORDE DINH Performing Organization Address City/[facility] Co de Phone Number [facility] [address] [place] [address] * DRUG SCREEN TRIAGE PANEL (04/11/2010 2:15 PM COMMAND AND CONTROL OFFICER) Phencyclidine Screen Urine Negative Negative ng/ml [facility] Benzodiazepines Screen Urine Negative Negative ng/ml [facility] Cocaine Screen Urine Negative Negative ng/ml [facility] Amphetamines Screen Urine Negative Negative ng/ml [facility] Cannabinoids Screen Urine Negative Negative ng/ml [facility] Opiate Screen Urine Negative Negative ng/ml [facility] Barbiturates Screen Urine Negative Negative ng/ml [facility] URINE / Unknown 04/11/2010 2 :15 PM COMMAND AND CONTROL OFFICER 04/11/2010 3:11 PM COMMAND AND CONTROL OFFICER Maicol Uriarte MD LAB - URINE CHEMISTR Y ORDERABLES Performing Organization Address City/[facility]/ZIP Co de Phone Number [facility] [address] [place] [address] * AMYLASE BLOOD (04/11/2010 2:15 PM COMMAND AND CONTROL OFFICER) Amylase 52 30 - 110 U/L [facility] BLOOD SPECIMEN / Unknown 04/11/2010 2:15 PM COMMAND AND CONTROL OFFICER 04/11/2010 3:11 PM COMMAND AND CONTROL OFFICER Maicol Uriarte MD LAB - CHEMISTRY ABAD TAO [facility] [address] [place] [address]
--- OUTSIDE RECORDS SUMMARY | 2024-03-25 02:31 | XMS_ITS | Clinical Summary ---
Author Organization [facility] Address [address] [place] [address] [place] [address] Care Team Providers Care Devil Dog Name Role Phone Unavailable Primary Care Provider Unavailabl e Source Comments [facility],non-owned Affiliates and Associated Physician Practices is amultiple site organization consisting of ambulatory clinics and hospital sitesin [place], [place], [place] and [place]. This disclosure is being madepursuant to the Care Everywhere program and may not contain all information available regarding this patient. Last updated 17.[employer] Allergies No known active allergies Medications * [...] abdomen, no stones seen on US at [facility], no stones recovered with urine straining. [...] Comments Blood Pressure 142/99 01/01/2020 5:14 PM GOVERNMENT MINISTER Pulse 105 01/01/2020 5:14 PM GOVERNMENT MINISTER Temperature 36.4 C (97.6 F) 01/01/2020 5:14 PM GOVERNMENT MINISTER Respiratory Rate 16 01/01/2020 5:14 PM GOVERNMENT MINISTER Oxygen Saturation 97% 01/01/2020 5:14 PM GOVERNMENT MINISTER Inhaled Oxygen Concentration - - Weight 90.7 kg (200 lb) 01/01/2020 5:14 PM GOVERNMENT MINISTER Height 160 cm (5' 3 ) 01/01/2020 5:14 PM GOVERNMENT MINISTER Body Mass Index 35.43 01/01/2020 5:14 PM GOVERNMENT MINISTER Plan of Treatment Health Maintenance Due Date [...]
--- OUTSIDE RECORDS SUMMARY | 2024-03-25 02:31 | XMS_ITS | Clinical Summary ---
Author Organization [facility] Address [address] [place] [address] Phone Care Team Providers Care Pet Store Merchandiser Name Role Phone Provider, None Primary Care [...] Department Care Team Description 02/25/2024 Transcribe Orders [facility] Central Scheduling [address] [place] [id number] Aide Dickson APRN, CNP Pelvic and perineal pain (Primary Dx) 02/19/2024 11:53 AM EQUINE MANAGER - 02/19/2024 2:29 PM EQUINE MANAGER [facility] [address] [place] [id number] Blanca Corbin APRN, DIGITAL PHOTOGRAPHER Suprapubic abdominal pain Discharge Disposition: Discharged to [...] Comments Blood Pressure 133/68 02/19/2024 2:00 PM EQUINE MANAGER Pulse 91 02/19/2024 2:15 PM EQUINE MANAGER Temperature 36.9 C (98.5 F) 02/19/2024 12:00 PM EQUINE MANAGER Respiratory Rate 16 02/19/2024 12:00 PM EQUINE MANAGER Oxygen Saturation 98% 02/19/2024 2:15 PM EQUINE MANAGER Inhaled Oxygen Concentration - - Weight 90.7 kg (200 lb) 02/19/2024 12:00 PM EQUINE MANAGER Height 160 cm (5' 3 ) 02/19/2024 12:00 PM EQUINE MANAGER Body Mass Index 35.43 02/19/2024 12:00 PM EQUINE MANAGER Plan of Treatment Health Maintenance Due Date [...] CONTRAST) Stat with Interpretation 02/19/2024 1:13 PM EQUINE MANAGER POCT URINE HCG () STAT 02/19/2024 12:34 PM EQUINE MANAGER URINALYSIS REFLEX IF INDICATED BY ABNORMAL RESULTS STAT 02/19/2024 12:30 PM EQUINE MANAGER GOLD TOP TUBE STAT 02/19/2024 12:10 PM EQUINE MANAGER BLUE TOP TUBE STAT 02/19/2024 12:10 PM EQUINE MANAGER CBC WITH AUTO DIFFERENTIAL STAT 02/19/2024 12:10 PM EQUINE MANAGER EXTRA TUBES STAT 02/19/2024 12:10 PM EQUINE MANAGER LIPASE STAT 02/19/2024 12:10 PM EQUINE MANAGER CMP (COMPREHENSIVE METABOLIC PANEL) STAT 02/19/2024 12:10 PM EQUINE MANAGER COMPLETE BLOOD COUNT (CBC) WITH DIFF STAT 02/19/2024 12:10 PM EQUINE MANAGER from Last 3 Months Results * CT RENAL STONE STUDY (ABDOMEN AND PELVIS W/O CONTRAST) (02/19/2024 1:13 PM EQUINE MANAGER) Anatomical Region Laterality Modality Abdomen N/A Computed Tomogra phy 02/19/2024 2:01 PM EQUINE MANAGER Impressions 02/19/2024 2:04 PM EQUINE MANAGER IMPRESSION: No evidence of an acute abnormality of the abdomen and pelvis. No evidence of urolithiasis or obstructive uropathy. Submucosal fat deposition in the colon which is nonspecific but can be seen with chronic inflammatory bowel disease. Narrative 02/19/2024 2:04 PM EQUINE MANAGER EXAM DESCRIPTION: CT RENAL STONE STUDY (ABDOMEN [...] Wagner Jiang M.D. CH: RAUL Report ID: [id number] Reading Location: [place] [address] Procedure Note Wagner Jiang Jr., MD - [...] Wagner Jiang M.D. CH: RAUL Report ID: [id number] Reading Location: [id number] IMPRESSION: No evidence of an acute abnormality of the abdomen and pelvis. No evidence of urolithiasis or obstructive uropathy. Submucosal fat deposition in the colon which is nonspecific but can be seen with chronic inflammatory bowel disease. Blanca Corbin APRN, CNP IMG CT ORDERABLES Fin al Result * POCT Urine HCG () (02/19/2024 12:34 PM EQUINE MANAGER) Pathologist [facility] POC URINE Negative POC URINE CONTROL Industrial Registered Nurse Pass Urine 02/19/2024 12:3 4 PM EQUINE MANAGER Blanca Corbin APRN, CNP POINT OF CARE TESTING (MANUAL) Final Result * (ABNORMAL) URINALYSIS REFLEX IF INDICATED BY ABNORMAL RESULTS (02/19/2024 12:30 PM EQUINE MANAGER) SPECIFIC GRAVITY 1.020 1.003 - 1.030 02/19/2024 1:13 PM [facility] URINE PH 6.0 5.0 - 9.0 02/19/2024 1:13 PM [facility] WBC ESTERASE 25 /ul(A) Negative 02/19/2024 1:13 PM [facility] NITRITE Negative Negative 02/19/2024 1:13 PM [facility] PROTEIN, RANDOM URINE 30 mg/dL(A) Negative 02/19/2024 1:13 PM [facility] URINE GLUCOSE, QUAL Negative Negative 02/19/2024 1:13 PM [facility] URINE KETONES Negative Negative 02/19/2024 1:13 PM [facility] UROBILINOGEN Normal Normal mg/dL 02/19/2024 1:13 PM [facility] URINE BLOOD Negative Negative omaira/ul 02/19/2024 1:13 PM [facility] URINALYSIS COLOR Yellow 02/18/19 25 1:13 PM [facility] URINALYSIS CLARITY Slightly Cloudy 02/19/2024 1:13 PM [facility] WBC (Urine) 0-5 Negative, 0-5 /hpf 02/19/2024 1:13 PM [facility] URINE RBC'S 0-2 Negative, 0-2 /hpf 02/19/2024 1:13 PM [facility] EPITHELIAL CELLS Large amount squamous /lpf 02/19/2024 1:13 PM [facility] BACTERIA, URINE Few(A) Negative /hpf 02/19/2024 1:13 PM [facility] Urine URINE SPECIMEN COLLECTION, CLEAN CATCH / Unknown Non-Phlebotomy Collection / Unknown 02/19/2024 12:30 PM EQUINE MANAGER 02/19/2024 12:41 PM EQUINE MANAGER Narrative [facility] - 02/19/2024 1:13 PM EQUINE MANAGER Amorphous sediment present us Blanca Corbin BACKEND TESTER, DIGITAL PHOTOGRAPHER URINE ORDERABLES Liz l Result Performing Organization Address City/[facility]/ZIP Co de Phone Number [facility] [address] [place] [address] * Gold Top Tube (02/19/2024 12:10 PM EQUINE MANAGER) Blood No Phlebotomy Charged / Unknown 02/19/2024 12:10 PM EQUINE MANAGER 02/19/2024 12:19 PM EQUINE MANAGER us Blanca Corbin BACKEND TESTER, DIGITAL PHOTOGRAPHER CHEMISTRY ORDERABLES Final Result Performing Organization Address [facility]/ZIP Co de Phone Number [facility] [address] [place] [address] * Blue Top Tube (02/19/2024 12:10 PM EQUINE MANAGER) Blood No Phlebotomy Charged / Unknown 02/19/2024 12:10 PM EQUINE MANAGER 02/19/2024 12:19 PM EQUINE MANAGER us Blanca Corbin BACKEND TESTER, DIGITAL PHOTOGRAPHER HEMATOLOGY ORDERABLES Final Result Performing Organization Address [facility] Co de Phone Number [facility] [address] [place] [address] * (ABNORMAL) CBC with Auto Differential (02/19/2024 12:10 PM EQUINE MANAGER) WBC 11.00 4.00 - 12.00 10(3)/mcL 02/19/2024 12:22 PM EQUINE MANAGER [facility] RBC 5.07 3.80 - 5.30 10(6)/mcL 02/19/2024 12:22 PM EQUINE MANAGER [facility] HEMOGLOBIN (HGB) 15.8 12.0 - 15.8 g/dL 02/19/2024 12:22 PM EQUINE MANAGER [facility] HEMATOCRIT (HCT) 46.8 36.0 - 47.0 % 02/19/2024 12:22 PM EQUINE MANAGER [facility] MCV 92.3 82.0 - 96.0 fL 02/19/2024 12:22 PM [facility] MCH 31.2 26.0 - 34.0 pg 02/19/2024 12:22 PM [facility] MCHC 33.8 31.0 - 36.0 g/dL 02/19/2024 12:22 PM [facility] PLATELET COUNT 354 140 - 440 10(3)/[facility] 02/19/2024 12:22 PM [facility] RDW 12.2 11.8 - 15.5 % 02/19/2024 12:22 PM [facility] MPV 9.5(L) 9.7 - 12.4 fL 02/19/2024 12:22 PM [facility] NEUTROPHILS 55.9 47.0 - 73.0 % 02/19/2024 12:22 PM [facility] LYMPHOCYTES 31.2 18.0 - 42.0 % 02/19/2024 12:22 PM [facility] MONOCYTES 10.3 4.0 - 12.0 % 02/19/2024 12:22 PM [facility] EOSINOPHILS 2.0 0.0 - 5.0 % 02/19/2024 12:22 PM [facility] BASOPHILS 0.6 0.0 - 1.0 % 02/19/2024 12:22 PM [facility] ABSOLUTE NEUTROPHILS 6.15 1.60 - 7.70 10(3)/mcL 02/19/2024 12:22 PM [facility] ABSOLUTE LYMPHOCYTES 3.43(H) 1.30 - 3.20 10(3)/mcL 02/19/2024 12:22 PM [facility] ABSOLUTE MONOCYTES 1.13(H) 0.20 - 1.00 10(3)/mcL 02/19/2024 12:22 PM [facility] ABSOLUTE EOSINOPHIL 0.22 0.00 - 0.40 10(3)/mcL 02/19/2024 12:22 PM [facility] ABSOLUTE BASOPHILS 0.07 0.00 - 0.10 10(3)/mcL 02/19/2024 12:22 PM EQUINE MANAGER [facility] NRBC PER 100 WBC 0 02/18/19 12:22 PM EQUINE MANAGER [facility] Blood Venipuncture / Unknown 02/19/2024 12:10 PM EQUINE MANAGER 02/19/2024 12:18 PM EQUINE MANAGER us Blanca Corbin APRN, DIGITAL PHOTOGRAPHER HEMATOLOGY ORDERABLES Final Result Performing Organization Address City/[facility]/ZIP Co de Phone Number [facility] [address] [place] [address] * Lipase [id number] (02/19/2024 12:10 PM EQUINE MANAGER) LIPASE 16 8 - 78 U/L 02/19/2024 12:40 PM EQUINE MANAGER [facility] Blood Venipuncture / Unknown 02/19/2024 12:10 PM EQUINE MANAGER 02/19/2024 12:18 PM EQUINE MANAGER us Blanca Corbin APRN, DIGITAL PHOTOGRAPHER CHEMISTRY ORDERABLES Final Result Performing Organization Address City/[facility]/ZIP Co de Phone Number [facility] [address] [place] [address] * (ABNORMAL) Comprehensive Metabolic Panel (Cmp) [id number] (02/19/2024 12:10 PM EQUINE MANAGER) SODIUM 139 136 - 145 mmol/L 02/19/2024 12:40 PM EQUINE MANAGER [facility] POTASSIUM 4.0 3.5 - 5.1 mmol/L 02/19/2024 12:40 PM EQUINE MANAGER [facility] CHLORIDE 104 98 - 107 mmol/L 02/19/2024 12:40 PM EQUINE MANAGER [facility] CO2, VENOUS 27 22 - 30 mmol/L 02/19/2024 12:40 PM EQUINE MANAGER [facility] ANION GAP 12.0 <18.0 mmol/L 02/19/2024 12:40 PM [facility] GLUCOSE 103(H) 70 - 99 mg/dL 02/19/2024 12:40 PM [facility] BUN 14 5 - 18 mg/dL 02/19/2024 12:40 PM [facility] CREATININE, BLOOD 0.85 0.60 - 1.00 mg/dL 02/19/2024 12:40 PM [facility] BUN/CREATININE RATIO 16 12 - 20 ratio 02/19/2024 12:40 PM [facility] TOTAL PROTEIN 7.8 6.3 - 8.2 g/dL 02/19/2024 12:40 PM [facility] ALBUMIN 4.3 3.5 - 5.0 g/dL 02/19/2024 12:40 PM [facility] A/G RATIO 1.2 1.0 - 2.2 02/19/2024 12:40 PM [facility] CALCIUM 9.8 8.7 - 10.5 mg/dL 02/19/2024 12:40 PM [facility] T BILI 0.3 0.2 - 1.2 mg/dL 02/19/2024 12:40 PM [facility] SGOT (AST) 20 5 - 34 U/L 02/19/2024 12:40 PM [facility] SGPT (ALT) 28 0 - 55 U/L 02/19/2024 12:40 PM [facility] ALKALINE PHOSPHATASE 62 40 - 150 U/L 02/19/2024 12:40 PM [facility] GFR, ESTIMATED >60 >=60 02/19/2024 12:40 PM [facility] Comment: Creatinine Clearance is the preferred criteria for selecting drug dose adjustments in renally impaired patients. The GFR is provided as additional pertinent clinical information. GFR is reported in mL/min/1.73 sq m. Calculation based on the Chronic Kidney Disease Epidemiology Collaboration (CKD- EPI) equation refit without adjustment for race. GFR, EST. >60 >=60 025 12:40 PM EQUINE MANAGER [facility] GFR, EST. NONAFRICAN >60 >=60 02/19/2024 12:40 PM EQUINE MANAGER [facility] Blood Venipuncture / Unknown 02/19/2024 12:10 PM EQUINE MANAGER 02/19/2024 12:18 PM EQUINE MANAGER Blanca Corbin BACKEND TESTER, DIGITAL PHOTOGRAPHER CHEMISTRY ORDERABLES Final Result [facility] [address] [place] [address] from Last 3 Months Insurance [place] [employer] Care Teams Pet Store Merchandiser Relationship Specialty Start Date End Date Provider, None [place] PCP - General 02/19/24
[2024-03-25 02:44] LABS: BEDSIDEPREGUCG Negative (Negative)
[2024-03-25 05:35] VITALS: BP 134/84; PULSE 78; RESP 16; O2SAT 100
== END 2024-03-25 05:36 | disposition home or self-care (01) ==
PROVIDERS: Emergency Provider Student in an Organized Health Care Education/Training Program
DX: K59.00 Constipation, unspecified (principal)
CPT/HCPCS: 74018; 74176; 81025; 99284